=== PATIENT | female | born 1980 | race Caucasian/White ===

== ENCOUNTER 2019-01-26 05:43 | Emergency (ER) | payer OTHER ==
[~2019-01-26] VITALS: Ht 162.6 cm; Wt 68.4 kg
[~2019-01-26 05:43] MED LIST: ASPI1TAB31 PO; IBUP-1223 PO
--- NOTE | 2019-01-26 06:00 | NUR ---
Pt brought to room 40, c/o pain w/ urination, bladder spasm, urgency/frequency x 1 day, worse this am, states " I havent been able to sleep". Provided urine specimen cup, education provided. vss.
--- NOTE | 2019-01-26 06:10 | NUR ---
Urine specimen collected nd sent. Pt aske for MD pari notified.
[2019-01-26] MEDS ORDERED: PHENAZOPYRIDINE 200 MG TABLET ONE (06:21)
[2019-01-26] MEDS ORDERED: KETOROLAC 30 MG/1 ML ONE (06:21)
--- NOTE | 2019-01-26 06:26 | NUR ---
Pt medicated for pain per MD orders, pacing in room, guarding, vitals stable.
[2019-01-26] MEDS ORDERED: PHENAZOPYRIDINE 200 MG TABLET PO ONE (06:30)
[2019-01-26] MEDS ORDERED: KETOROLAC 30 MG/1 ML IM ONE (06:30)
[2019-01-26 06:37] LABS: BASOPHILS # (AUTO) 0.02 x10^3/uL (0-0.1); BASOPHILS % (AUTO) 0 % (0-1); EOSINOPHILS # (AUTO) 0.03 x10^3/uL (0-0.4); EOSINOPHILS % (AUTO) 0 % (1-7); LYMPHOCYTES # (AUTO) 1.04 x10^3/uL (1-3.4); LYMPHOCYTES % (AUTO) 13 % (22-44); MD NO; MEAN CORPUSCULAR HEMOGLOBIN 31.4 pg (27.0-34.8); MEAN CORPUSCULAR HGB CONC 33.7 g/dL (32.4-35.8); MEAN CORPUSCULAR VOLUME 93.4 fL (80-100); MONOCYTES # (AUTO) 0.41 x10^3/uL (0.2-0.8); MONOCYTES % (AUTO) 5 % (2-9); NEUTROPHILS # (AUTO) 6.45 x10^3/uL (1.8-6.8); NEUTROPHILS % (AUTO) 81 % (42-75); PLATELET COUNT 222 x10^3/uL (130-400); RED BLOOD COUNT 4.81 x10^6/uL (3.82-5.3); RED CELL DISTRIBUTION WIDTH 12.8 % (9.6-15.2)
[2019-01-26 06:50] LABS: ALBUMIN 4.5 g/dL (3.4-5.0); ANION GAP 9 mmol/L (5-15); CALCIUM 9.3 mg/dL (8.5-10.1); CHLORIDE 109 mmol/L (98-107)
[2019-01-26 06:52] LABS: MICROSCOPIC AUTO
[2019-01-26 06:55] VITALS: BP 119/70
[2019-01-26 06:55] LABS: CREATININE 0.62 mg/dL (0.55-1.02)
[2019-01-26 06:57] LABS: CULTURE INDICATED? NO
--- NOTE | 2019-01-26 07:37 | NUR ---
LATE NOTE ENTRY FOR 0645: Received report from RADHA Meadows. All qustions answered. Assuming care of pt. NADN. No needs expressed. Pt ambulates with steady gait and balance to restroom. Pt states, "I am feeling better, my pain now is like a 4."
--- NOTE | 2019-01-26 08:29 | NUR ---
LATE NOTE ENTRY FOR 0820: Patient given discharge instructions and they have confirmed that they understand the instructions. Patient ambulatory with steady gait. Pt left with d/c paperwork, prescription, urine strainers, and all personal belongings. NADN. Pt encouraged to return if symptoms worsen or change.
== END 2019-01-26 08:32 | disposition home or self-care (01) ==
LOC: ED 06:25
DX: N23 Unspecified renal colic (principal); N20.0 Calculus of kidney
CPT/HCPCS: 36415; 74176; 80048; 81001; 82040; 84703; 85025; 96372; 99284; J1885

== ENCOUNTER 2020-05-22 16:05 | Day surgery (SDC) | payer OTHER ==
[~2020-05-22] VITALS: Ht 162.6 cm; Wt 83.2 kg
[2020-05-22 16:24] VITALS: BP 126/91
[2020-05-22] MEDS ORDERED: PLEASE ENTER HEIGHT AND WEIGHT MC SCH (16:30)
[2020-05-22] MEDS ORDERED: LACTATED RINGERS 1,000 ML IV SCH ×2 (16:30)
[2020-05-22] MEDS ORDERED: CHLORHEXIDINE 15 ML UDC MM ONE (16:30)
[2020-05-22] MEDS ORDERED: TIZA4TAB2 PO (16:32)
[2020-05-22] MEDS ORDERED: TUMS PO (16:32)
[2020-05-22] MEDS ORDERED: ONDANSETRON PO (16:32)
[2020-05-22] MEDS ORDERED: GABAPENTIN PO (16:32)
[2020-05-22] MEDS ORDERED: NAPROXEN PO (16:32)
[2020-05-22] MEDS ORDERED: RIZA10TA34 PO (16:32)
[2020-05-22] MEDS ORDERED: PAPA1TAB8 PO (16:32)
[2020-05-22] MEDS ORDERED: NURTEC PO (16:32)
[2020-05-22 17:15] LABS: INTERNATIONAL NORMALIZED RATIO 0.99 (0.93-1.1); PROTHROMBIN TIME 10.5 Seconds (9.6-11.5)
[2020-05-22 17:26] LABS: MICROSCOPIC INDICATED
[2020-05-22 17:27] LABS: HCG UR SG 1.025 (1.003-1.030)
[2020-05-22] MEDS ORDERED: MIDAZOLAM 1 MG/ML, 2ML ONE (17:27)
[2020-05-22] MEDS ORDERED: FENTANYL PF 250 MCG/5ML ONE (17:27)
[2020-05-22] MEDS ORDERED: LIDOCAINE GEL 2%, 5ML ONE (17:29)
[2020-05-22] MEDS ORDERED: FENTANYL PF 100 MCG/2ML IV PRN (17:30)
[2020-05-22] MEDS ORDERED: PROMETHAZINE 25 MG/ML, 1ML IVPush PRN (17:30)
[2020-05-22] MEDS ORDERED: DIPHENHYDRAMINE 50 MG/ML, 1ML IVPush PRN (17:30)
[2020-05-22] MEDS ORDERED: OXYcodone 5 MG/5 ML ORAL.SOL UDC PO PRN (17:30)
[2020-05-22] MEDS ORDERED: LABETALOL 5MG/ML, 20ML IV PRN (17:30)
[2020-05-22] MEDS ORDERED: HYDROcodone/APAP 7.5-325MG/15ML UDC PO PRN (17:30)
[2020-05-22] MEDS ORDERED: HALOPERIDOL 5 MG/ML IV PRN (17:30)
[2020-05-22] MEDS ORDERED: HYDROmorphone 1 MG/ML, 1ML INJ IVPush PRN (17:30)
[2020-05-22] MEDS ORDERED: hydrALAzine 20 MG/ML, 1ML IV PRN (17:30)
[2020-05-22] MEDS ORDERED: MEPERIDINE/PF 25MG/0.5ML IVPush PRN (17:30)
[2020-05-22] MEDS ORDERED: KETOROLAC 30 MG/1 ML ONE (18:02)
[2020-05-22] MEDS ORDERED: SUCCINYLCHOLINE 20 MG/ML, 10ML ONE (18:35)
[2020-05-22] MEDS ORDERED: ONDANSETRON 2MG/ML, 2ML ONE (18:35)
[2020-05-22] MEDS ORDERED: CEFAZOLIN 1,000 MG ONE (18:35)
[2020-05-22] MEDS ORDERED: GLYCOPYRROLATE 0.2MG/1ML, 5ML ONE (18:35)
[2020-05-22] MEDS ORDERED: ROCURONIUM 10MG/ML,5ML ONE (18:35)
[2020-05-22] MEDS ORDERED: PROPOFOL 10 MG/ML, 20ML ONE (18:35)
[2020-05-22] MEDS ORDERED: DEXAMETHASONE 4 MG/ML, 1ML ONE (18:35)
[2020-05-22] MEDS ORDERED: NEOSTIGMINE 1 MG/ML, 10ML ONE (18:35)
[2020-05-22] MEDS ORDERED: OXYcodone 5 MG/5 ML ORAL.SOL UDC ONE (19:00)
[2020-05-22] MEDS ORDERED: SCOPOLAMINE 1MG PATCH TD ONE (20:38)
== END 2020-05-22 21:40 | disposition home or self-care (01) ==
LOC: OR 16:05
PROVIDERS: ATTEND Urology
DX: N20.0 Calculus of kidney (principal); G43.909 Migraine, unspecified, not intractable, without status migrainosus; K21.9 Gastro-esophageal reflux disease without esophagitis; Z79.899 Other long term (current) drug therapy; Z79.01 Long term (current) use of anticoagulants; Z87.442 Personal history of urinary calculi; Z91.040 Latex allergy status
CPT/HCPCS: 36415; 52353; 81001; 81025; 85610; 87086; 87635; 88300; C1769; J0330; J0690; J1100; J1170; J1885; J2250; J2405; J2704; J3010; J7120; 82360; J2710

== ENCOUNTER 2020-05-27 11:20 | Inpatient (IN) | payer OTHER ==
[~2020-05-27] VITALS: Ht 162.6 cm; Wt 84.2 kg
[~2020-05-27 11:20] MED LIST changes: +GABAPENTIN PO; +NAPROXEN PO; +NURTEC PO; +ONDANSETRON PO; +PAPA1TAB8 PO; +RIZA10TA34 PO; +TIZA4TAB2 PO; +TUMS PO
[2020-05-27] MEDS ORDERED: MORPHINE SULFATE 4 MG/ML, 1ML IVPush PRN (12:00)
[2020-05-27] MEDS ORDERED: SODIUM CHLORIDE FLUSH 10ML SYR IVF ONE ×2 (12:00→13:30)
[2020-05-27] MEDS ORDERED: ONDANSETRON ODT 4 MG PO ONE (12:00)
[2020-05-27 12:27] LABS: BASOPHILS % (AUTO) 1 % (0-1); EOSINOPHILS % (AUTO) 0 % (1-7); LYMPHOCYTES % (AUTO) 8 % (22-44); MEAN CORPUSCULAR HEMOGLOBIN 31.6 pg (27.0-34.8); MEAN CORPUSCULAR HGB CONC 34.6 g/dL (32.4-35.8); MEAN PLATELET VOLUME 8.3 fL (7.4-10.4); MONOCYTES % (AUTO) 7 % (2-9); NEUTROPHILS % (AUTO) 84 % (42-75); PLATELET COUNT 262 x10^3/uL (130-400); RED BLOOD COUNT 4.79 x10^6/uL (3.82-5.3); RED CELL DISTRIBUTION WIDTH 12.5 % (9.6-15.2)
[2020-05-27 12:39] LABS: ANION GAP 7 mmol/L (5-15); CALCIUM 9.2 mg/dL (8.5-10.1); CHLORIDE 108 mmol/L (98-107); CREATININE 0.88 mg/dL (0.55-1.02)
--- NOTE | 2020-05-27 13:00 | NUR ---
ROLL HAND: PT TO ROOM FROM LOBBY VIA WHEELCHAIR
[2020-05-27 13:04] LABS: MD SCAN
[2020-05-27] MEDS ORDERED: HYDROmorphone 1 MG/ML, 1ML INJ ONE ×3 (13:10→17:58)
[2020-05-27] MEDS ORDERED: KETOROLAC 30 MG/1 ML ONE ×2 (13:10→18:45)
[2020-05-27] MEDS ORDERED: ONDANSETRON 2MG/ML, 2ML ONE ×3 (13:10→18:45)
[2020-05-27] MEDS: HYDROmorphone 2 MG/ML, 1ML IVPush PRN ×2 (13:13→13:56)
--- NOTE | 2020-05-27 13:17 | NUR ---
Pt reports L sided kidney stone, lithotripsy Friday by Dr. Webb. Pt reports increased L flank pain with N/V, not relieved by percocet and zofran she was given after the surgery. Pt reports pain 10/10, appears restless in bed, frequent dry heaving. Pt placed in gown and positioned for comfort in bed. Continuous oxygen and BP monitors applied. Pt medicated for pain per AUG.
[2020-05-27] MEDS ORDERED: ONDANSETRON 2MG/ML, 2ML IVPush ONE (13:30)
[2020-05-27] MEDS ORDERED: KETOROLAC 30 MG/1 ML IVPush ONE (13:30)
--- NOTE | 2020-05-27 13:33 | NUR ---
Pt reports pain and nausea improved after medications.
[2020-05-27 13:48] LABS: MICROSCOPIC INDICATED
--- NOTE | 2020-05-27 14:02 | NUR ---
patient medicated with second dose of dilaudid. patient states pain scale 7/10 after 1st dose. no other needs at this time.
--- NOTE | 2020-05-27 14:25 | NUR ---
Pt reports pain improved to 4/10 after medications. Pt to radiology via gurney at this time.
[2020-05-27] MEDS ORDERED: PROMETHAZINE 25 MG/ML, 1ML ONE (14:39)
--- NOTE | 2020-05-27 14:43 | NUR ---
Pt back from CT. Pt c/o continued nausea. Discussed with Dr. Echevarria. Orders recieved for IM Phenergan. Pt medicated per order. Pt denies other needs.
[2020-05-27] MEDS ORDERED: PROMETHAZINE 25 MG/ML, 1ML IM ONE (15:00)
--- NOTE | 2020-05-27 16:18 | NUR ---
Pt to bathroom and back to bed via wheelchair. Pt reports she is feeling better, nausea resolved and pain improved.
[2020-05-27] MEDS ORDERED: CEFTRIAXONE PMX 1GM/50ML 50 ML ONE (16:57)
[2020-05-27] MEDS ORDERED: CEFTRIAXONE PMX 1GM/50ML 50 ML IV ONE (17:00)
--- NOTE | 2020-05-27 17:11 | NUR ---
Pt resting in bed, NADN, denies needs. POC discussed. Report called to HAND LAMINATOR.
[2020-05-27] MEDS ORDERED: HYDROmorphone 2 MG/ML, 1ML IVPush PRN (18:00)
[2020-05-27] MEDS ORDERED: morphine SULFATE 10 MG/ML, 1ML IVPush PRN (18:00)
[2020-05-27] MEDS ORDERED: RIZATRIPTAN 10MG TABLET PO SCH (18:00)
[2020-05-27] MEDS ORDERED: CEFTRIAXONE PMX 1GM/50ML 50 ML IV SCH (18:00)
[2020-05-27] MEDS ORDERED: ONDANSETRON 2MG/ML, 2ML IVPush PRN ×2 (18:00→18:30)
[2020-05-27] MEDS ORDERED: METOCLOPRAMIDE 5 MG/ML, 2ML IVPush PRN ×2 (18:00→18:30)
[2020-05-27] MEDS ORDERED: PROMETHAZINE 25 MG/ML, 1ML IM PRN (18:00)
--- NOTE | 2020-05-27 18:01 | NUR ---
Pt c/o increased pain 01/06. Discussed with Dr. Echevarria, orders recieved for 1mg Dilaudid IVP. Pt medicated per order. Pt to OR via [facility] and [email or web address].
[2020-05-27] MEDS ORDERED: MIDAZOLAM 1 MG/ML, 2ML ONE (18:16)
[2020-05-27] MEDS ORDERED: FENTANYL PF 250 MCG/5ML ONE (18:17)
[2020-05-27] MEDS ORDERED: PROMETHAZINE 25 MG/ML, 1ML IVPush PRN (18:30)
[2020-05-27] MEDS ORDERED: hydrALAzine 20 MG/ML, 1ML IV PRN (18:30)
[2020-05-27] MEDS ORDERED: OXYcodone 5 MG/5 ML ORAL.SOL UDC PO PRN (18:30)
[2020-05-27] MEDS ORDERED: HYDROmorphone 1 MG/ML, 1ML INJ IVPush PRN (18:30)
[2020-05-27] MEDS ORDERED: FENTANYL PF 100 MCG/2ML IV PRN (18:30)
[2020-05-27] MEDS ORDERED: LABETALOL 5MG/ML, 20ML IV PRN (18:30)
[2020-05-27] MEDS ORDERED: ACETAMINOPHEN 325 MG TABLET PO PRN (18:30)
[2020-05-27] MEDS ORDERED: MEPERIDINE/PF 25MG/0.5ML IVPush PRN (18:30)
[2020-05-27] MEDS ORDERED: DIPHENHYDRAMINE 50 MG/ML, 1ML IVPush PRN (18:30)
[2020-05-27] MEDS ORDERED: DIAZEPAM 5 MG/ML, 2ML IVPush PRN (18:30)
[2020-05-27] MEDS ORDERED: SCOPOLAMINE 1MG PATCH TD ONE (18:33)
[2020-05-27] MEDS ORDERED: PROPOFOL 50 ML ONE ×2 (18:39→19:28)
[2020-05-27] MEDS ORDERED: SUCCINYLCHOLINE 20 MG/ML, 10ML ONE (18:45)
[2020-05-27] MEDS ORDERED: DEXAMETHASONE 4 MG/ML, 1ML ONE (18:45)
[2020-05-27] MEDS ORDERED: ROCURONIUM 10MG/ML,5ML ONE (18:45)
[2020-05-27] MEDS ORDERED: DIAZEPAM 5 MG/ML, 2ML ONE (20:23)
[2020-05-27] MEDS ORDERED: GABAPENTIN 300 MG CAPSULE PO SCH (21:00)
[2020-05-27] MEDS: SODIUM CHLORIDE 0.9% 1,000 ML IV SCH (21:49)
[2020-05-27 21:52] VITALS: BP 104/63
[2020-05-27] MEDS ORDERED: TIZANIDINE 4MG TABLET PO SCH (22:00)
[2020-05-28 00:46] VITALS: BP 99/66
[2020-05-28 03:57] VITALS: BP 100/66
[2020-05-28 06:00] LABS: BASOPHILS % (AUTO) 0 % (0-1); EOSINOPHILS % (AUTO) 0 % (1-7); LYMPHOCYTES % (AUTO) 6 % (22-44); MEAN CORPUSCULAR HEMOGLOBIN 31.8 pg (27.0-34.8); MEAN CORPUSCULAR HGB CONC 34.2 g/dL (32.4-35.8); MEAN PLATELET VOLUME 8.6 fL (7.4-10.4); MONOCYTES % (AUTO) 2 % (2-9); NEUTROPHILS % (AUTO) 91 % (42-75); PLATELET COUNT 227 x10^3/uL (130-400); RED BLOOD COUNT 4.26 x10^6/uL (3.82-5.3); RED CELL DISTRIBUTION WIDTH 12.8 % (9.6-15.2)
[2020-05-28 06:02] LABS: ANION GAP 4 mmol/L (5-15); CALCIUM 8.2 mg/dL (8.5-10.1); CHLORIDE 110 mmol/L (98-107)
[2020-05-28 06:07] LABS: ALANINE AMINOTRANSFERASE 22 U/L (12-78); ALKALINE PHOSPHATASE 56 U/L (45-117); BILIRUBIN,TOTAL 0.5 mg/dL (0.2-1.0); CREATININE 0.61 mg/dL (0.55-1.02); TOTAL PROTEIN 6.6 g/dL (6.4-8.2)
[2020-05-28 06:43] LABS: MD SCAN
[2020-05-28 07:55] VITALS: BP 105/69
[2020-05-28] MEDS ORDERED: ACETAMINOPHEN 325 MG TABLET PO PRN (08:00)
[2020-05-28] MEDS: SODIUM CHLORIDE 0.9% 1,000 ML IV SCH (08:48)
[2020-05-28] MEDS ORDERED: TIZANIDINE 4MG TABLET PO SCH (09:00)
[2020-05-28] MEDS ORDERED: OXYC-293 PO (11:33)
[2020-05-28] MEDS ORDERED: CEFD300C37 PO (11:33)
[2020-05-28] MEDS ORDERED: ONDA4TAB13 SL (11:33)
[2020-05-28] MEDS ORDERED: OXYB5TAB10 PO (11:33)
[2020-05-28] MEDS ORDERED: TAMS-11 PO (11:33)
[2020-05-28 12:26] VITALS: BP 109/78
== END 2020-05-28 13:20 | disposition home or self-care (01) | DRG 660 ==
LOC: ED 14:21 → EDIP 17:13 → 4NE 21:02 → DCLOUNGE 05-28 13:05
PROVIDERS: ADMIT Internal Medicine; ATTEND Internal Medicine
PROC: 0T778DZ Dilation of Left Ureter with Intraluminal Device, Via Natural or Artificial Opening Endoscopic (ICD-10-PCS; 2020-05-27)
PROC: 0TC18ZZ Extirpation of Matter from Left Kidney, Via Natural or Artificial Opening Endoscopic (ICD-10-PCS; principal; 2020-05-27 18:15)
DX: N13.6 Pyonephrosis (principal); N20.2 Calculus of kidney with calculus of ureter; Q61.9 Cystic kidney disease, unspecified; R65.10 Systemic inflammatory response syndrome (SIRS) of non-infectious origin without acute organ dysfunction; Z20.828 Contact with and (suspected) exposure to other viral communicable diseases; G43.909 Migraine, unspecified, not intractable, without status migrainosus; D72.829 Elevated white blood cell count, unspecified; Z87.442 Personal history of urinary calculi; Z79.899 Other long term (current) drug therapy; Z79.82 Long term (current) use of aspirin; Z91.040 Latex allergy status; Z82.49 Family history of ischemic heart disease and other diseases of the circulatory system; Z80.9 Family history of malignant neoplasm, unspecified
CPT/HCPCS: 36415; 74176; 80048; 80053; 81001; 82040; 84703; 85025; 87040; 87086; 87635; 88300; G0378; J0696; J1100; J1170; J1885; J2250; J2405; J2550; J2704; J3010; J3360; C1758; C1769; J0330; J2270; J7030